=== PATIENT | female | born 1955 | race Caucasian/White ===

== ENCOUNTER 2018-06-21 11:50 | Observation (INO) | payer BC ==
[~2018-06-21] VITALS: Ht 170.2 cm; Wt 82.0 kg
[2018-06-21 12:21] LABS: HEMATOCRIT 40.9 % (36.0-46.0); HEMOGLOBIN 14.1 G/DL (11.9-15.5); MCH 29.6 PG (29.0-34.0); MCHC 34.5 G/DL (30.0-36.0); MCV 85.9 FL (83-99); PLATELET COUNT 309 K/uL (156-360); RBC DIS.WIDTH-CV 12.9 % (11.8-14.6); RBC DIS.WIDTH-SD 40.3 % (39-53); RED BLOOD COUNT 4.76 M/uL (3.80-5.20); WHITE BLOOD COUNT 9.4 K/uL (4.1-10.2)
[2018-06-21 12:29] LABS: CHLORIDE 102 mEq/L (99-109); POTASSIUM 4.9 mEq/L (3.7-5.4); SODIUM 136 mEq/L (136-147)
[2018-06-21 12:31] LABS: GLUCOSE 292 mg/dL (70-99)
[2018-06-21 12:35] LABS: CREATININE 0.8 mg/dL (0.6-1.3); GFR ESTIMATE (CALCULATED) > 59 mL/min/
[2018-06-21 12:36] LABS: UREA NITROGEN (BUN) 22 mg/dL (9-23)
[2018-06-21 12:42] LABS: TROP-I INTERPRETATION NEGATIVE; TROPONIN-I < 0.01 ng/mL (0.0-0.30)
[2018-06-21] MEDS ORDERED: ACARBOSE50 MG PO (14:05)
[2018-06-21] MEDS ORDERED: JANUVIA100 MG PO (14:05)
[2018-06-21] MEDS ORDERED: RIZATRIPTAN10 M1 PO (14:08)
[2018-06-21] MEDS ORDERED: METOCLOPRAMIDE H5 MG PO (14:08)
[2018-06-21] MEDS ORDERED: FORTAMET1000 M1 PO (14:09)
[2018-06-21] MEDS ORDERED: GLIPIZIDE XL10 MG PO (14:09)
[2018-06-21] MEDS ORDERED: LEVOTHYROXINE50 MCG PO (14:10)
[2018-06-21] MEDS ORDERED: VITAMIN D31000 UNI2 PO (14:12)
[2018-06-21] MEDS ORDERED: VITAMIN B122500 MCG PO (14:12)
[2018-06-21] MEDS ORDERED: SALMON OIL 1,01 EACH PO (14:13)
[2018-06-21 15:41] VITALS: BP 139/69
[2018-06-21 19:08] LABS: TROP-I INTERPRETATION NEGATIVE; TROPONIN-I < 0.01 ng/mL (0.0-0.30)
[2018-06-21 19:40] VITALS: BP 116/59
[2018-06-21 23:59] VITALS: BP 92/45
[2018-06-22 01:31] LABS: TROP-I INTERPRETATION NEGATIVE; TROPONIN-I < 0.01 ng/mL (0.0-0.30)
[2018-06-22 03:27] VITALS: BP 104/55
[2018-06-22 04:57] LABS: HDL CHOLESTEROL 43 MG/DL (Desirable>=50); LDL CHOLESTEROL 142 mg/dL (Desirable<100); NON-HDL CHOLESTEROL 172 mg/dL (Desirable<160); TOTAL CHOLESTEROL 215 mg/dL (Desirable<200); TRIGLYCERIDES 149 MG/DL (Normal: <150)
[2018-06-22 07:43] VITALS: BP 136/65
[2018-06-22 10:52] LABS: HEMOGLOBIN A1c (GLYCOHEMOGLOB) 8.7 % (Below 5.7)
[2018-06-22 11:50] VITALS: BP 128/58
[2018-06-22] MEDS ORDERED: FAMOTIDINE20 MG PO (11:53)
[2018-06-22] MEDS ORDERED: ASPIRIN81 M2 PO (11:54)
[2018-06-22] MEDS ORDERED: CRESTOR40 MG PO (11:54)
[2018-06-22] MEDS ORDERED: LEVEMIR100 UNIT/2 SC (15:00)
[2018-06-24 17:23] LABS: Epinephrine, Plasma 30 pg/mL (()); Norepinephrine, Plasma 283 pg/mL (())
[2018-06-26 14:06] LABS: Insulin Like Growth Factor-1 182 ng/mL (41-279); Z-SCORE (FEMALE) 0.8 SD (-2.0 - +2.0)
== END 2018-06-22 20:03 | disposition home or self-care (01) ==
LOC: EME 11:50 → EDOF 14:09 → 4SOUTH 14:09 → EDOF 14:09 → ENRESERV 14:16 → 4SOUTH 15:27
PROVIDERS: Hospitalist; Internal Medicine
DX: R07.9 Chest pain, unspecified (principal); E11.65 Type 2 diabetes mellitus with hyperglycemia; E03.9 Hypothyroidism, unspecified; E78.5 Hyperlipidemia, unspecified; G43.909 Migraine, unspecified, not intractable, without status migrainosus; H53.8 Other visual disturbances; R35.8 Other polyuria; R63.1 Polydipsia; Z90.49 Acquired absence of other specified parts of digestive tract; Z82.49 Family history of ischemic heart disease and other diseases of the circulatory system; Z83.3 Family history of diabetes mellitus; Z88.8 Allergy status to other drugs, medicaments and biological substances; Z79.84 Long term (current) use of oral hypoglycemic drugs
CPT/HCPCS: 80048; 80061; 82384 90; 82533 91; 82943 90; 82948; 83003 90; 83036; 83525; 84305 90; 84484; 84681; 85027; 93005; 99281; 99285; G0378; J1650; J1815